=== PATIENT | male | born 1990 | race African-American/Black ===

== ENCOUNTER 2020-06-09 20:53 | Emergency (ER) | payer BC ==
--- NOTE | 2020-06-09 20:56 | EDM.PDOC ---
ED HPI GENERAL MEDICAL PROBLEM - General Chief Complaint: Lower Extremity Injury/Pain Stated Complaint: BACK PAIN Time Seen by Provider: 06/09/20 20:55 Source of Information: Reports: Patient History Limitations: Reports: No Limitations - History of Present Illness INITIAL COMMENTS - FREE TEXT/NARRATIVE: 29-year-old male no past medical history presents for left lower extremity injury. Patient was playing basketball when he landed on the affected extremity and felt a sudden pain in his left calf and posterior ankle. He has had difficulty walking on it since. He denies any other injuries, LOC, hitting his head. Onset: Today Left Leg Pain Score (Numeric/FACES): 7 - Related Data Allergies Allergy/AdvReac Type Severity Reaction Status Date / Time shellfish derived Allergy Other Verified 06/09/20 21:18 Home Meds: Home Meds Acetaminophen/oxyCODONE [Percocet 325-10 MG] 0.5 - 1 tab PO Q4H PRN #12 tab 06/09/20 [Rx] Albuterol Sulfate [Albuterol Sulfate Hfa] 1 dose INH ASDIRECTED 06/09/20 [History] Ibuprofen [Motrin] 600 mg PO Q6H PRN #30 tab 06/09/20 [Rx] Review of Systems - Review of Systems Review Of Systems: Comprehensive ROS is negative, except as noted in HPI. ED EXAM, GENERAL - Physical Exam Exam: See Below Exam Limited By: No Limitations General Appearance: Alert, WD/WN, No Apparent Distress Throat/Mouth: Normal Voice, No Airway Compromise Head: Atraumatic, Normocephalic Neck: Normal Inspection Respiratory/Chest: No Respiratory Distress, No Accessory Muscle Use Cardiovascular: Normal Peripheral Pulses, Regular Rate, Rhythm Extremities: Other (pain with palpation of left calf musculature, achilles tendon feels boggy when compared to R; mccall test equivical as patient doesn't tolerate pain of squeeze, no medial/lateral malleolus TTP, normal dorsalis pedis pulse, no TTP of tibia) Neurological: Alert Psychiatric: Normal Affect, Normal Mood Skin Exam: Warm, Dry, Intact, Normal Color Course - Vital Signs Last Recorded V/S: Last Vital Signs Temp 96.8 F L 06/09/20 21:19 Pulse 67 06/09/20 21:19 Resp 18 06/09/20 21:19 BP 131/72 06/09/20 21:19 Pulse Ox 96 06/09/20 21:19 - Orders/Labs/Meds Orders: Active Orders 24 hr Category Date Time Status Splinting [RC] ASDIRECTED Care 06/09/20 21:59 Active Meds: Medications Discontinued Medications Generic Name Dose Route Start Last Admin Trade Name Freq PRN Reason Stop Dose Admin Acetaminophen 1,000 mg 06/09/20 21:24 06/09/20 21:29 Acetaminophen 500 Mg Tab PO 06/09/20 21:25 1,000 mg ONETIME ONE Administration Ibuprofen 600 mg 06/09/20 21:24 06/09/20 21:28 Ibuprofen 600 Mg Tab PO 06/09/20 21:25 600 mg ONETIME ONE Administration Oxycodone/Acetaminophen 1 tab 06/09/20 22:22 Acetaminophen/Oxycodone 325-10 Mg Tab PO 06/09/20 22:23 ONETIME ONE - Re-Assessments/Exams Free Text/Narrative Re-Assessment/Exam: 06/09/20 21:27 High suspicion for Achilles tendon injury or gastrocnemius muscle tear. Will get x-ray imaging to rule out osseous injury. Anticipate discharge with short leg splint and orthopedic follow-up for further work-up. Explained RICE therapy, will give crutches for ambulation. 06/09/20 22:23 Neurovascular exam after splint application by nursing performed by me, normal sensation, normal movement of toes, normal capillary refill. Return precautions for signs of decreased blood flow to the limb explained. Return precautions for compartment syndrome explained. Departure - Departure Time of Disposition: 22:08 Disposition: Home, Self-Care 01 Condition: Good Clinical Impression: Achilles tendon injury Qualifiers: Encounter type: initial encounter Laterality: left Qualified Code(s): S86.002A - Unspecified injury of left Achilles tendon, initial encounter - Discharge Information Prescriptions: Ibuprofen [Motrin] 600 mg PO Q6H PRN #30 tab PRN Reason: Pain Acetaminophen/oxyCODONE [Percocet 325-10 MG] 0.5 - 1 tab PO Q4H PRN #12 tab PRN Reason: Pain Instructions: Achilles Tendon Tear Referrals: PCP,Not In Area [Primary Care Provider] - Forms: ED Department Discharge Additional Instructions: Your x-rays do not show any evidence of fracture of your bones. I do have a high suspicion of Achilles tendon rupture or disruption in the gastrocnemius muscles of your calf. We placed you in a short leg splint that will help stabilize everything until you are able to follow-up with an orthopedic physician. Information is provided below for our orthopedic clinic in [place]. The orthopedic surgeon is out of town until July but I believe they have physician assistants that are able to evaluate you and order any diagnostic testing you might need such as an ultrasound or MRI to confirm the diagnosis of Achilles tendon rupture. If this is something that requires a physician they will be able to refer you to orthopedics in [place]. If you to rather go directly to [place] to see an orthopedic physician, information is also provided below for their contact information. [facility] [address] [place] [address], [address] [place], [place] [id number] [facility] [address] [place] [address] You can take Tylenol 1000 mg every 6 hours as needed for pain. I have also sent a prescription for Motrin 600 mg which is safe to take with the Tylenol every 6 hours for pain. If this is not adequate for pain control I have also prescribed a short course of Percocet for pain. Please keep in mind that Percocet does have 350 mg of Tylenol and it and you should not exceed 4000 mg of Tylenol per day as this can be harmful to your liver. The following information is given to patients seen in the emergency department who are being discharged to home. This information is to outline your options for follow-up care. We provide all patients seen in our emergency department with a follow-up referral. The need for follow-up, as well as the timing and circumstances, are variable depending upon the specifics of your emergency department visit. If you don't have a primary care physician on staff, we will provide you with a referral. We always advise you to contact your personal physician following an emergency department visit to inform them of the circumstance of the visit and for follow-up with them and/or the need for any referrals to a consulting specialist. The emergency department will also refer you to a specialist when appropriate. This referral assures that you have the opportunity for follow-up care with a specialist. All of these measure are taken in an effort to provide you with optimal care, which includes your follow-up. Under all circumstances we always encourage you to contact your private physician who remains a resource for coordinating your care. When calling for follow-up care, please make the office aware that this follow-up is from your recent emergency room visit. If for any reason you are refused follow-up, please contact the [facility] Emergency Department at and asked to speak to the emergency department charge nurse. Please follow up with your primary care physician. If you do not have a primary care physician, see below: [facility] [address] [place] [id number] [facility] [address] [place] [id number] [facility] [address] [place] [id number] Sepsis Event Note (ED) - Focused Exam Vital Signs: Vital Signs Temp Pulse Resp BP Pulse Ox 06/09/20 21:19 96.8 F L 67 18 131/72 96 - My Orders Last 24 Hours: My Active Orders 06/09/20 21:59 Splinting [RC] ASDIRECTED - Assessment/Plan Last 24 Hours: My Active Orders 06/09/20 21:59 Splinting [RC] ASDIRECTED
[2020-06-09] MEDS ORDERED: Ibuprofen 600 MG Tab PO ONE (21:24)
[2020-06-09] MEDS ORDERED: Acetaminophen 500 MG Tab PO ONE (21:24)
--- NOTE | 2020-06-09 21:53 | CR ---
INDICATION: Ankle pain TECHNIQUE: Ankle radiograph 3 views left COMPARISON: None FINDINGS: Bone: No acute fractures or aggressive bone lesions are identified. Joint: The ankle mortise joint and the visualized hindfoot joints are unremarkable in appearance. No significant ankle effusion is seen. Soft tissue: The Kager fat pad and the Achilles` tendon is normal in appearance. No radiopaque foreign bodies are seen. IMPRESSION: 1. No acute osseous injuries or abnormalities are noted. Any suspected Achilles injury is better assessed by MRI. Dictated by: Pawel Dudley MD @ 06/09/2020 21:52:15 (Electronically Signed)
--- NOTE | 2020-06-09 21:57 | CR ---
INDICATION: Suspected Achilles tendon rupture. Low suspect of osseous injury. TECHNIQUE: Four views left tibia and fibula. Findings : No acute fracture or dislocation in left tibia or fibula. Slight narrowing of the lateral compartment of the left knee. Mild soft tissue prominence along the Achilles tendon which could indicate pathology but on plain film is nonspecific. Remainder negative. Dictated by Brock Patel MD @ Jun 09 2020 9:52PM Signed by Dr. Brock Patel @ Jun 09 2020 9:55PM
[2020-06-09] MEDS ORDERED: Acetaminophen/oxyCODONE 325-10 MG Tab PO ONE (22:22)
== END 2020-06-09 22:27 | disposition home or self-care (01) ==
LOC: MW.ED 20:53
DX: S86.002A Unspecified injury of left Achilles tendon, initial encounter (principal); Z91.013 Allergy to seafood; W19.XXXA Unspecified fall, initial encounter; Y93.67 Activity, basketball
CPT/HCPCS: 29515; 73590; 73610; 99283; A9270